=== PATIENT | female | born 1985 | race Caucasian/White ===

== ENCOUNTER 2016-12-31 22:29 | Emergency (ER) | payer MEDICAID, OTHER ==
[2016-12-31] MEDS ORDERED: KENALOG 0.1% CREAM 15 GM TP ONE (22:30)
[2016-12-31] MEDS ORDERED: KENALOG 0.1% LOTION TP ONE (22:38)
--- NOTE | 2016-12-31 22:54 | ERPHSYRPT ---
- History of Present Illness Time Seen by Provider: 12/31/16 22:49 Source: patient Exam Limitations: no limitations Patient Subjective Stated Complaint: pt states she has a rash to her scalp for a few weeks Triage Nursing Assessment: pt awake and alert. answers questions approp. pt fidgeting and moving constantly. pt ambulatory with steady gait noted. respirations nonlabored with lungs cta. raised red bumps and some pustules noted to scalp. large matted hair ball to top of head. Physician History: pt states she has a rash to her scalp for a few weeks raised red bumps and some pustules noted to scalp. large matted hair ball to top of head Timing/Duration: day(s) Quality: burning, itchy Severity: moderate Location: scalp Possible Causes: no cause identified Allergies/Adverse Reactions: labetalol [Labetalol] Allergy (Mild, Verified 01/05/15 18:27) Home Medications: Clonazepam 0.5 mg [Klonopin 0.5 MG] 0.5 mg PO DAILY 07/22/14 [History] Aripiprazole 10 mg [Abilify 10 MG] 10 mg PO DAILY 01/05/15 [History] Mcbee Carbonate [Mcbee Carbonate ER] 450 mg PO BID 01/05/15 [History] Hx Tetanus, Diphtheria Vaccination/Date Given: Yes Hx Influenza Vaccination/Date Given: No Hx Pneumococcal Vaccination/Date Given: No Immunizations Up to Date: Yes - Review of Systems Constitutional: No Symptoms Eyes: No Symptoms Ears, Nose, & Throat: No Symptoms Respiratory: No Symptoms Cardiac: No Symptoms Abdominal/Gastrointestinal: No Symptoms Genitourinary Symptoms: No Symptoms Skin: Rash, Skin Lesions (on scalp) - Past Medical History Pertinent Past Medical History: Yes Neurological History: No Pertinent History ENT History: No Pertinent History Cardiac History: Hypertension Respiratory History: No Pertinent History Endocrine Medical History: No Pertinent History Musculoskeletal History: No Pertinent History GI Medical History: No Pertinent History History: No Pertinent History Psycho-Social History: Anxiety, Bipolar, Depression Female Reproductive Disorders: Endometriosis, Other Other Medical History: PRE-ECLAMPSIA - Past Surgical History Past Surgical History: Yes Neuro Surgical History: No Pertinent History Cardiac: No Pertinent History Respiratory: No Pertinent History Gastrointestinal: No Pertinent History Genitourinary: No Pertinent History Musculoskeletal: No Pertinent History Female Surgical History: Section, Tubal Ligation - Social History Smoking Status: Current some day smoker Exposure to second hand smoke: Yes Drug Use: none Patient Lives Alone: No - Female History Hx Last Menstrual Period: last month Hx Now: No - Nursing Vital Signs Nursing Vital Signs: Initial Vital Signs Temperature 98.3 F 12/31/16 22:36 Pulse Rate 80 12/31/16 22:36 Respiratory Rate 18 12/31/16 22:36 Blood Pressure 162/94 12/31/16 22:36 O2 Sat by Pulse Oximetry 96 12/31/16 22:36 Pain Scale Pain Intensity 0 - Physical Exam General Appearance: no apparent distress Skin Exam: rash (on scalp area) Lymphatic Exam: adenopathy SpO2: 98 Oxygen Delivery: Room Air - Course Nursing assessment & vital signs reviewed: Yes Ordered Tests: Medication Summary Discontinued Medications Generic Name Dose Route Start Last Admin Trade Name Freq PRN Reason Stop Dose Admin Triamcinolone Acetonide 30 ml 12/31/16 22:38 Kenalog 0.1% Lotion TP 12/31/16 22:39 STAT ONE - Progress Progress: unchanged Counseled pt/family regarding: diagnosis, need for follow-up - Departure Time of Disposition: 22:51 Departure Disposition: Home Clinical Impression: Dermatitis Condition: Stable Critical Care Time: No Referrals: AIRAM ALBERTS [Primary Care Provider] - Instructions: Atopic Dermatitis - Adult Additional Instructions: RASH 1. Depending on the reason for the rash, the instructions will differ. 2. If an antibiotic has been prescribed, take it as directed until gone. 3. If anti-fungals or shampoos are prescribed, use only as directed and follow specific instructions on package container. 4. Avoid hot showers/baths, as this may increase itching. 5. Calamine lotion or Aveeno Oatmeal baths may help itching. 6. See your family physician if these signs or symptoms persist for more than four days. Prescriptions: Triamcinolone 0.1% Lotion [Kenalog 0.1% Lotion] 60 ml TP QID #60 lotion
[2016-12-31 23:10] VITALS: BP 127/70; PULSE 76; O2SAT 100
== END 2016-12-31 23:10 | disposition home or self-care (01) ==
LOC: ED 22:29
DX: L30.9 Dermatitis, unspecified (principal); I10 Essential (primary) hypertension
CPT/HCPCS: 99282; A9270-GY

== ENCOUNTER 2018-05-24 10:57 | Emergency (ER) | payer MEDICAID, OTHER ==
[2018-05-24 11:08] VITALS: O2SAT 99
--- NOTE | 2018-05-24 11:25 | ERPHSYRPT ---
- History of Present Illness Time Seen by Provider: 05/24/18 11:22 Source: patient Exam Limitations: no limitations Patient Subjective Stated Complaint: pt co sorethroat for a couple days , no fever no cough Triage Nursing Assessment: pt alert, walked in, resp easy, skin w/d/p. Physician History: The patient is a 33-year-old female with her 2 sons complaining of a sore throat for 2 days. She denies any fever. She was exposed to other family members recently who were diagnosed with strep throat. She is concerned only for the possibility that she has strep throat. She doesn't take any of her medicines that are prescribed. Timing/Duration: gradual onset, days (2) Severity: mild ENT Location: throat Prearrival Treatment: no prearrival treatment Modifying Factors: Improves With: nothing Associated Symptoms: sore throat Allergies/Adverse Reactions: labetalol [Labetalol] Allergy (Mild, Verified 05/24/18 11:08) Home Medications: No Reportable Medications [No Reported Medications] 05/24/18 [History] Hx Tetanus, Diphtheria Vaccination/Date Given: No Hx Influenza Vaccination/Date Given: No Hx Pneumococcal Vaccination/Date Given: No Immunizations Up to Date: Yes - Review of Systems Constitutional: No Fever, No Chills Eyes: No Symptoms Ears, Nose, & Throat: Throat Pain Respiratory: No Cough, No Dyspnea Cardiac: No Chest Pain, No Edema, No Syncope Abdominal/Gastrointestinal: No Abdominal Pain, No Nausea, No Vomiting, No Diarrhea Genitourinary Symptoms: No Dysuria Musculoskeletal: No Back Pain, No Neck Pain Skin: No Rash Neurological: No Dizziness, No Focal Weakness, No Sensory Changes Psychological: No Symptoms Endocrine: No Symptoms Hematologic/Lymphatic: No Symptoms Immunological/Allergic: No Symptoms All Other Systems: Reviewed and Negative - Past Medical History Pertinent Past Medical History: No Neurological History: No Pertinent History ENT History: No Pertinent History Cardiac History: Hypertension Respiratory History: No Pertinent History Endocrine Medical History: No Pertinent History Musculoskeletal History: No Pertinent History GI Medical History: No Pertinent History History: No Pertinent History Psycho-Social History: Anxiety, Bipolar, Depression Female Reproductive Disorders: Endometriosis, Other Other Medical History: PRE-ECLAMPSIA - Past Surgical History Past Surgical History: Yes Neuro Surgical History: No Pertinent History Cardiac: No Pertinent History Respiratory: No Pertinent History Gastrointestinal: No Pertinent History Genitourinary: No Pertinent History Musculoskeletal: No Pertinent History Female Surgical History: Section - Social History Smoking Status: Never smoker Exposure to second hand smoke: Yes Drug Use: none Patient Lives Alone: No - Female History Hx Last Menstrual Period: may 08 Hx Now: No - Nursing Vital Signs Nursing Vital Signs: Initial Vital Signs Temperature 97.9 F 05/24/18 11:00 Pulse Rate 88 05/24/18 11:00 Respiratory Rate 16 05/24/18 11:00 Blood Pressure 186/130 05/24/18 11:00 O2 Sat by Pulse Oximetry 98 05/24/18 11:00 Pain Scale Pain Intensity 6 - Physical Exam General Appearance: no apparent distress, alert Eye Exam: bilateral eye: normal inspection, PERRL Ear Exam: bilateral ear: auricle normal Nasal Exam: normal inspection Throat Exam: tonsillar exudate Neck Exam: supple Cardiovascular/Respiratory Exam: normal breath sounds, regular rate/rhythm Abdominal Exam: non-tender, soft Neurologic Exam: alert, oriented x 3, sensation nml, No motor deficits Skin Exam: normal color, warm, dry SpO2 Interpretation: normal SpO2: 99 Oxygen Delivery: Room Air Lab/Rad Data: Laboratory Results 05/24/18 Range/Units 11:34 Group A Strep Antibody NEGATIVE (NEGATIVE) - Progress Progress: unchanged Counseled pt/family regarding: lab results, diagnosis - Departure Time of Disposition: 12:26 Departure Disposition: Home Clinical Impression: Acute pharyngitis Condition: Stable Critical Care Time: No Referrals: DOCTOR,NO FAMILY [Primary Care Provider] - Additional Instructions: You have acute pharyngitis that is caused by a viral infection. The sensitive strep test that we performed was negative. Gargle with warm salt water as often as she like. Take Tylenol and ibuprofen as needed. Follow-up with your primary medical doctor as needed.
[2018-05-24 12:29] VITALS: BP 104/64; PULSE 112
== END 2018-05-24 12:33 | disposition home or self-care (01) ==
LOC: ED 10:57
DX: J02.9 Acute pharyngitis, unspecified (principal)
CPT/HCPCS: 87651; 99283

== ENCOUNTER 2018-06-22 18:34 | Emergency (ER) | payer MEDICAID, OTHER ==
[2018-06-22 19:35] LABS: BASOPHIL % 0.2 % (0.0-0.4); Basophil (Absolute #) 0.03 (0-0.4); Eosinophil % 1.3 % (0.00-5.0); Eosinophil (Absolute #) 0.18 (0-0.5); Granulocyte Absolute (ANC) 10.32 (1.4-6.9); Granulocytes % 76.2 % (36.0-66.0); Hematocrit 39.3 % (35-47); Hemoglobin 13.2 gm/dl (12.0-16.0); Lymphocyte (Absolute #) 2.33 (1.0-4.6); Lymphocytes % 17.2 % (24.0-44.0); Mean Cell Volume 87.3 fl (78-100); Mean Corpuscular Hemoglobin 29.3 pg (26-32); Mean Corpuscular Hgb Concent. 33.6 g/dl (32-36); Mean Platelet Volume 10.6 fl (6-9.5); Monocyte (Absolute #) 0.69 (0.0-1.3); Monocytes % 5.1 % (0.0-12.0); Platelet Count 301 K/mm3 (150-450); Red Cell Distribution Width 12.2 % (11.5-14.0); White Blood Count 13.6 K/mm3 (4.0-10.5)
[2018-06-22 19:50] LABS: ALBUMIN 4.3 g/dL (3.5-5.0); ALKALINE PHOSPHATASE 94 U/L (38-126); ANION GAP 12.6 MEQ/L (5-15); BLOOD UREA NITROGEN 12 mg/dL (7-17); CHLORIDE 102 mmol/L (98-107); Calcium 9.8 mg/dL (8.4-10.2); Carbon Dioxide 28 mmol/L (22-30); Creatinine 1 0.81 mg/dL (0.52-1.04); Glucose 116 mg/dL (74-106); Potassium 3.5 mmol/L (3.5-5.1); SGOT/AST 21 U/L (14-36); SGPT/ALT 17 U/L (0-35); SODIUM 139 mmol/L (137-145); Total Protein 7.6 g/dL (6.3-8.2)
[2018-06-22 20:05] VITALS: BP 158/109; PULSE 82; O2SAT 96
[2018-06-22 20:23] LABS: Group A Strep POSITIVE (NEGATIVE); INFLUENZA A NEGATIVE (NEGATIVE); INFLUENZA B NEGATIVE (NEGATIVE); RESPIRATORY SYNCTIAL VIRUS NEGATIVE (Negative)
[2018-06-22] MEDS ORDERED: AMOXIL 500 MG PO ONE (20:26)
[2018-06-22] MEDS ORDERED: AMOXIL 500 MG ONE (20:29)
--- NOTE | 2018-06-22 20:32 | ERPHSYRPT ---
- History of Present Illness Source: patient Exam Limitations: no limitations Patient Subjective Stated Complaint: Sore throat/Body aches Triage Nursing Assessment: Patient ambulated back to ED and transferred self to bed. Patient A+OX 3. Patient complains of sore throat and body aches 4/10 since earlier today and has gotten worse throughout the day. Patient denies fever. Patient's lungs noted to be clear a/p juni. O2 98% on room air. Skin pink, warm and dry. Throat noted to be slightly red. Physician History: Pt is a 33 y/o female that started having sore throat and muscle pains, and as she is new to the area, does not have a PCP, so she came to the ED. Pt states no F/C/S. No dysuria, frequency and urgency. No SOB or cough. No wheeze. No N/V/D or abdominal pain. Timing/Duration: abrupt onset Severity: mild ENT Location: throat Modifying Factors: Improves With: nothing Associated Symptoms: malaise, sore throat Allergies/Adverse Reactions: labetalol [Labetalol] Allergy (Mild, Verified 06/22/18 18:52) Hx Tetanus, Diphtheria Vaccination/Date Given: No Hx Influenza Vaccination/Date Given: No Hx Pneumococcal Vaccination/Date Given: No Immunizations Up to Date: Yes - Review of Systems Constitutional: Malaise Eyes: No Symptoms Ears, Nose, & Throat: Throat Pain, Painful Swallowing Respiratory: No Cough, No Dyspnea Cardiac: No Chest Pain, No Edema, No Syncope Abdominal/Gastrointestinal: No Abdominal Pain, No Nausea, No Vomiting, No Diarrhea Genitourinary Symptoms: No Dysuria Musculoskeletal: No Back Pain, No Neck Pain - Past Medical History Pertinent Past Medical History: No Neurological History: No Pertinent History ENT History: No Pertinent History Cardiac History: Hypertension Respiratory History: No Pertinent History Endocrine Medical History: No Pertinent History Musculoskeletal History: No Pertinent History GI Medical History: No Pertinent History History: No Pertinent History Psycho-Social History: Anxiety, Bipolar, Depression Female Reproductive Disorders: Endometriosis, Other Other Medical History: PRE-ECLAMPSIA - Past Surgical History Past Surgical History: Yes Neuro Surgical History: No Pertinent History Cardiac: No Pertinent History Respiratory: No Pertinent History Gastrointestinal: No Pertinent History Genitourinary: No Pertinent History Musculoskeletal: No Pertinent History Female Surgical History: Section - Social History Smoking Status: Never smoker Exposure to second hand smoke: No Drug Use: none Patient Lives Alone: No - Female History Hx Last Menstrual Period: Couple days ago Hx Now: No - Nursing Vital Signs Nursing Vital Signs: Initial Vital Signs Temperature 100.1 F 06/22/18 18:52 Pulse Rate 108 H 06/22/18 18:52 Respiratory Rate 18 06/22/18 18:52 Blood Pressure 192/130 06/22/18 18:52 O2 Sat by Pulse Oximetry 96 06/22/18 18:52 Pain Scale Pain Intensity 4 - Physical Exam General Appearance: no apparent distress, alert Nasal Exam: normal inspection Throat Exam: pharynx normal, moist mucus membranes (No exudates were seen) Neck Exam: supple Cardiovascular/Respiratory Exam: normal breath sounds, regular rate/rhythm Abdominal Exam: non-tender, soft Neurologic Exam: alert, oriented x 3, sensation nml, No motor deficits SpO2: 96 - Course Nursing assessment & vital signs reviewed: Yes Ordered Tests: Active Orders 24 hr Category Date Time Status CBC W DIFF Stat Lab 06/22/18 19:25 Completed CMP Stat Lab 06/22/18 19:25 Completed Lab/Rad Data: Laboratory Result Diagrams 06/22/18 19:25 06/22/18 19:25 Laboratory Results 06/22/18 06/22/18 06/22/18 Range/Units 19:25 19:25 19:25 WBC 13.6 H (4.0-10.5) K/mm3 RBC 4.50 (4.1-5.4) M/mm3 Hgb 13.2 (12.0-16.0) gm/dl Hct 39.3 (35-47) % MCV 87.3 (78-100) fl MCH 29.3 (26-32) pg MCHC 33.6 (32-36) g/dl RDW 12.2 (11.5-14.0) % Plt Count 301 (150-450) K/mm3 MPV 10.6 H (6-9.5) fl Gran % 76.2 H (36.0-66.0) % Eos # (Auto) 0.18 (0-0.5) Absolute Lymphs (auto) 2.33 (1.0-4.6) Absolute Monos (auto) 0.69 (0.0-1.3) Lymphocytes % 17.2 L (24.0-44.0) % Monocytes % 5.1 (0.0-12.0) % Eosinophils % 1.3 (0.00-5.0) % Basophils % 0.2 (0.0-0.4) % Absolute Granulocytes 10.32 H (1.4-6.9) Basophils # 0.03 (0-0.4) Sodium 139 (137-145) mmol/L Potassium 3.5 (3.5-5.1) mmol/L Chloride 102 (98-107) mmol/L Carbon Dioxide 28 (22-30) mmol/L Anion Gap 12.6 (5-15) MEQ/L BUN 12 (7-17) mg/dL Creatinine 0.81 (0.52-1.04) mg/dL Estimated GFR > 60.0 ML/MIN Glucose 116 H (74-106) mg/dL Calcium 9.8 (8.4-10.2) mg/dL Total Bilirubin 0.30 (0.2-1.3) mg/dL AST 21 (14-36) U/L ALT 17 (0-35) U/L Alkaline Phosphatase 94 (38-126) U/L Serum Total Protein 7.6 (6.3-8.2) g/dL Albumin 4.3 (3.5-5.0) g/dL Influenza Type A Ag NEGATIVE (NEGATIVE) Influenza Type B Ag NEGATIVE (NEGATIVE) RSV (PCR) NEGATIVE (Negative) Group A Strep Antibody POSITIVE (NEGATIVE) - Progress Progress: unchanged Progress Note: 06/22/18 20:30 Pt had labs taken. She has leukocytosis, and group A strep came back positive. Pt will get a dose of Amoxicillin in the hospital, and a prescription will be e-scribed to her pharmacy of choice. A list of PCPs that accepts new pts will be given to the pt. Will see patient in: office Counseled pt/family regarding: lab results, diagnosis, need for follow-up - Departure Time of Disposition: 20:32 Departure Disposition: Home Clinical Impression: Acute pharyngitis, Strep pharyngitis Condition: Stable Critical Care Time: No Referrals: AIRAM ALBERTS [Primary Care Provider] - Instructions: Strep Throat (DC) Additional Instructions: Take Amoxicillin as ordered. F/U with PCP. Forms: Providers Accepting New PT'S Prescriptions: Amoxicillin 875 mg PO BID 7 Days #14 tablet
== END 2018-06-22 20:42 | disposition home or self-care (01) ==
LOC: ED 18:34
DX: J02.0 Streptococcal pharyngitis (principal)
CPT/HCPCS: 36415; 80053; 85025; 87631; 87651; 99283; A9270-GY

== ENCOUNTER 2018-08-02 16:52 | Emergency (ER) | payer OTHER ==
[2018-08-02] MEDS ORDERED: Zofran 4 MG/2 ML VIAL IV ONE (17:40)
[2018-08-02] MEDS ORDERED: Sodium Chloride 0.9% 1000 ML 1,000 ML IV STA (17:40)
[2018-08-02] MEDS ORDERED: Zofran 4 MG/2 ML VIAL ONE (17:54)
[2018-08-02] MEDS ORDERED: Sodium Chloride 0.9% 1000 ML 1,000 ML ONE (17:55)
[2018-08-02 18:16] VITALS: O2SAT 98
[2018-08-02 18:41] LABS: BASOPHIL % 0.2 % (0.0-0.4); Basophil (Absolute #) 0.01 (0-0.4); Eosinophil (Absolute #) 0.17 (0-0.5); Granulocyte Absolute (ANC) 3.06 (1.4-6.9); Granulocytes % 53.6 % (36.0-66.0); Hemoglobin 13.4 gm/dl (12.0-16.0); Lymphocyte (Absolute #) 1.87 (1.0-4.6); Lymphocytes % 32.7 % (24.0-44.0); Mean Cell Volume 87.3 fl (78-100); Mean Corpuscular Hemoglobin 29.3 pg (26-32); Mean Corpuscular Hgb Concent. 33.5 g/dl (32-36); Mean Platelet Volume 10.4 fl (6-9.5); Monocytes % 10.5 % (0.0-12.0); Platelet Count 276 K/mm3 (150-450); Red Blood Count 4.58 M/mm3 (4.1-5.4); Red Cell Distribution Width 12.9 % (11.5-14.0); White Blood Count 5.7 K/mm3 (4.0-10.5)
[2018-08-02] MEDS ORDERED: TYLENOL EXTRA STRENGTH 500 MG PO STA (18:50)
[2018-08-02] MEDS ORDERED: TYLENOL EXTRA STRENGTH 500 MG ONE (18:51)
[2018-08-02 19:04] LABS: ALBUMIN 4.1 g/dL (3.5-5.0); ALKALINE PHOSPHATASE 89 U/L (38-126); ANION GAP 13.6 MEQ/L (5-15); BLOOD UREA NITROGEN 16 mg/dL (7-17); CHLORIDE 108 mmol/L (98-107); Calcium 9.1 mg/dL (8.4-10.2); Carbon Dioxide 21 mmol/L (22-30); Creatinine 1 0.78 mg/dL (0.52-1.04); Glucose 104 mg/dL (74-106); LIPASE 68 U/L (23-300); Potassium 3.4 mmol/L (3.5-5.1); SGOT/AST 23 U/L (14-36); SGPT/ALT 19 U/L (0-35); SODIUM 139 mmol/L (137-145); Total Protein 7.3 g/dL (6.3-8.2)
[2018-08-02 19:12] LABS: 027 TOX PROD PRESUMPTIVE NEGATIVE (NEGATIVE); TOXIGENIC C. DIFF ORG NEGATIVE (NEGATIVE)
[2018-08-02 19:29] LABS: Appearance SLIGHTLY CLOUDY (CLEAR); Bacteria MODERATE /HPF (NEGATIVE); Bilirubin NEGATIVE (NEGATIVE); Blood NEGATIVE Ery/ul (0-5); Epithelial Cells RARE /HPF (FEW); Glucose NEGATIVE (NEGATIVE); Ketones NEGATIVE (NEGATIVE); Leukocyte Esterase SMALL (NEGATIVE); Mucus SLIGHT /HPF (NEGATIVE); Nitrite NEGATIVE (NEGATIVE); Protein,Urine Dip 30 (Negative); Specific Gravity 1.024 (1.005-1.025); Urobilinogen NEGATIVE mg/dL (0-1); WBC 26-50 /HPF (0-5)
[2018-08-02] MEDS ORDERED: ROCEPHIN 1 Gm-D5w 50 ml Bag** 1 G/50 ML IVPB IV STA (19:51)
[2018-08-02] MEDS ORDERED: Klor Con 10 MEQ PO ONE ×2 (19:51→19:54)
[2018-08-02] MEDS ORDERED: ROCEPHIN 1 Gm-D5w 50 ml Bag** 1 G/50 ML IVPB IV ONE (19:54)
--- NOTE | 2018-08-02 20:57 | ERPHSYRPT ---
- History of Present Illness Historian: patient Exam Limitations: no limitations Patient Subjective Stated Complaint: pt here for aches, nausea, fever off,loose stools off and on since tuesday, she is able to eat and drink and had a corn dog for lunch today, low grade fever last at 0400. Triage Nursing Assessment: pt alert, resp easy, skin w/d/p, abd soft, no edema Physician History: Pt presented to the ED with complains of severe N/V/D. Pt states, she had multiple episodes of diarrhea, and vomiting, and could not hold any fluids or food down. Pt states, had sweats, and body aches. Pt denies SOB or cough. No chest pain or palpitations. No dysuria, frequency and urgency. Timing/Duration: day(s) Activities at Onset: none Quality: cramping Abdominal Pain Onset Location: generalized abdomen Pain Radiation: no radiation Severity of Pain-Max: moderate Severity of Pain-Current: moderate Modifying Factors: Improves With: defecating, movement, palpation, vomiting Associated Symptoms: diarrhea, nausea, vomiting Allergies/Adverse Reactions: labetalol [Labetalol] Allergy (Mild, Verified 08/02/18 17:16) Hx Tetanus, Diphtheria Vaccination/Date Given: No Hx Influenza Vaccination/Date Given: No Hx Pneumococcal Vaccination/Date Given: No Immunizations Up to Date: Yes - Review of Systems Constitutional: Chills, Lethargy, Weakness Eyes: No Symptoms Ears, Nose, & Throat: No Symptoms Respiratory: No Cough, No Dyspnea Cardiac: No Chest Pain, No Edema, No Syncope Abdominal/Gastrointestinal: Abdominal Pain, Nausea, Vomiting, Diarrhea Genitourinary Symptoms: No Dysuria Musculoskeletal: No Back Pain, No Neck Pain Neurological: No Dizziness, No Focal Weakness, No Sensory Changes - Past Medical History Pertinent Past Medical History: No Neurological History: No Pertinent History ENT History: No Pertinent History Cardiac History: Hypertension Respiratory History: No Pertinent History Endocrine Medical History: No Pertinent History Musculoskeletal History: No Pertinent History GI Medical History: No Pertinent History History: No Pertinent History Psycho-Social History: Anxiety, Bipolar, Depression Female Reproductive Disorders: Endometriosis, Other Other Medical History: PRE-ECLAMPSIA - Past Surgical History Past Surgical History: Yes Neuro Surgical History: No Pertinent History Cardiac: No Pertinent History Respiratory: No Pertinent History Gastrointestinal: No Pertinent History Genitourinary: No Pertinent History Musculoskeletal: No Pertinent History Female Surgical History: Section - Social History Smoking Status: Never smoker Exposure to second hand smoke: No Drug Use: none Patient Lives Alone: No - Female History Hx Last Menstrual Period: may 2018 Hx Now: No - Nursing Vital Signs Nursing Vital Signs: Initial Vital Signs Temperature 97.8 F 08/02/18 17:09 Pulse Rate 85 08/02/18 17:09 Respiratory Rate 18 08/02/18 17:09 Blood Pressure 161/106 08/02/18 17:09 O2 Sat by Pulse Oximetry 97 08/02/18 17:09 Pain Scale Pain Intensity 7 - Physical Exam General Appearance: mild distress Eye Exam: PERRL/EOMI, eyes nml inspection Ears, Nose, Throat Exam: normal ENT inspection, pharynx normal, moist mucous membranes Neck Exam: normal inspection, non-tender, supple, full range of motion Respiratory Exam: normal breath sounds Cardiovascular Exam: regular rate/rhythm, normal heart sounds Gastrointestinal/Abdomen Exam: soft, normal bowel sounds, tenderness Pelvic Exam: not done Rectal Exam: deferred Extremity Exam: normal inspection, normal range of motion, pelvis stable Neurologic Exam: alert, oriented x 3, cooperative, normal mood/affect, nml cerebellar function, sensation nml, No motor deficits SpO2: 98 - Course Nursing assessment & vital signs reviewed: Yes Ordered Tests: Active Orders 24 hr Category Date Time Status CBC W DIFF Stat Lab 08/02/18 17:40 Completed CMP Stat Lab 08/02/18 18:30 Completed CULTURE,URINE Stat Lab 08/02/18 18:57 Received LIPASE Stat Lab 08/02/18 18:30 Completed Occult Blood, Other Screening Stat Lab 08/02/18 18:18 Completed UA W/RFX UR CULTURE Stat Lab 08/02/18 18:57 Completed Medication Summary Discontinued Medications Generic Name Dose Route Start Last Admin Trade Name Freq PRN Reason Stop Dose Admin Acetaminophen 1,000 mg 08/02/18 18:50 08/02/18 18:51 Tylenol Extra Strength 500 Mg PO 08/02/18 18:51 1,000 mg STAT STA Administration Acetaminophen Confirm 08/02/18 18:51 Tylenol Extra Strength 500 Mg Administered 08/02/18 18:52 Dose 1,000 mg .ROUTE .STK-MED ONE Sodium Chloride 1,000 mls @ 999 mls/hr 08/02/18 17:40 08/02/18 19:50 Sodium Chloride 0.9% 1000 Ml IV 08/02/18 18:40 Infused .Q1H1M STA Infusion Sodium Chloride Confirm 08/02/18 17:55 Sodium Chloride 0.9% 1000 Ml Administered 08/02/18 17:56 Dose 1,000 mls @ ud .ROUTE .STK-MED ONE Ceftriaxone Sodium/Dextrose 1 g in 50 mls @ 100 mls/hr 08/02/18 19:51 19:59 Rocephin 1 Gm-D5w 50 Ml Bag IV 08/02/18 20:20 100 mls/hr STAT STA Administration Ceftriaxone Sodium/Dextrose Confirm 08/02/18 19:54 Rocephin 1 Gm-D5w 50 Ml Bag Administered 08/02/18 19:55 Dose 1 g in 50 mls @ ud IV .STK-MED ONE Ondansetron HCl 4 mg 08/02/18 17:40 08/02/18 17:55 Zofran 4 Mg/2 Ml Vial IV 08/02/18 17:41 4 mg STAT ONE Administration Ondansetron HCl Confirm 08/02/18 17:54 Zofran 4 Mg/2 Ml Vial Administered 08/02/18 17:55 Dose 4 mg .ROUTE .STK-MED ONE Potassium Chloride 40 meq 08/02/18 19:51 08/02/18 20:00 Klor Con 10 Meq PO 08/02/18 19:52 40 meq STAT ONE Administration Potassium Chloride Confirm 08/02/18 19:54 Klor Con 10 Meq Administered 08/02/18 19:55 Dose 40 meq PO .STK-MED ONE Lab/Rad Data: Laboratory Result Diagrams 08/02/18 17:40 08/02/18 18:30 Laboratory Results 08/02/18 08/02/18 08/02/18 Range/Units 18:57 18:30 18:18 WBC (4.0-10.5) K/mm3 RBC (4.1-5.4) M/mm3 Hgb (12.0-16.0) gm/dl Hct (35-47) % MCV (78-100) fl MCH (26-32) pg MCHC (32-36) g/dl RDW (11.5-14.0) % Plt Count (150-450) K/mm3 MPV (6-9.5) fl Gran % (36.0-66.0) % Eos # (Auto) (0-0.5) Absolute Lymphs (auto) (1.0-4.6) Absolute Monos (auto) (0.0-1.3) Lymphocytes % (24.0-44.0) % Monocytes % (0.0-12.0) % Eosinophils % (0.00-5.0) % Basophils % (0.0-0.4) % Absolute Granulocytes (1.4-6.9) Basophils # (0-0.4) Sodium 139 (137-145) mmol/L Potassium 3.4 L (3.5-5.1) mmol/L Chloride 108 H (98-107) mmol/L Carbon Dioxide 21 L (22-30) mmol/L Anion Gap 13.6 (5-15) MEQ/L BUN 16 (7-17) mg/dL Creatinine 0.78 (0.52-1.04) mg/dL Estimated GFR > 60.0 ML/MIN Glucose 104 (74-106) mg/dL Calcium 9.1 (8.4-10.2) mg/dL Total Bilirubin 0.30 (0.2-1.3) mg/dL AST 23 (14-36) U/L ALT 19 (0-35) U/L Alkaline Phosphatase 89 (38-126) U/L Serum Total Protein 7.3 (6.3-8.2) g/dL Albumin 4.1 (3.5-5.0) g/dL Lipase 68 (23-300) U/L Urine Color YELLOW (YELLOW) Urine Appearance SLIGHTLY CLOUDY (CLEAR) Urine pH 5.0 (5-6) Ur Specific [place] 1.024 (1.005-1.025) Urine Protein 30 (Negative) Urine Ketones NEGATIVE (NEGATIVE) Urine Blood NEGATIVE (0-5) Enrique/ul Urine Nitrite NEGATIVE (NEGATIVE) Urine Bilirubin NEGATIVE (NEGATIVE) Urine Urobilinogen NEGATIVE (0-1) mg/dL Ur Leukocyte Esterase SMALL (NEGATIVE) Urine WBC (Auto) 26-50 (0-5) /HPF Urine RBC (Auto) 3-5 (0-2) /HPF U Epithel Cells (Auto) RARE (FEW) /HPF Urine Bacteria (Auto) MODERATE (NEGATIVE) /HPF Urine Mucus (Auto) SLIGHT (NEGATIVE) /HPF Urine Culture Reflexed YES (NO) Urine Glucose NEGATIVE (NEGATIVE) mg/dL Stool Occult Blood NEGATIVE (Negative) Stl C. diff Tox B Gene (NEGATIVE) C.difficile 027-[id number] (NEGATIVE) 08/02/18 08/02/18 Range/Units 18:18 17:40 WBC 5.7 (4.0-10.5) K/mm3 RBC 4.58 (4.1-5.4) M/mm3 Hgb 13.4 (12.0-16.0) gm/dl Hct 40.0 (35-47) % MCV 87.3 (78-100) fl MCH 29.3 (26-32) pg MCHC 33.5 (32-36) g/dl RDW 12.9 (11.5-14.0) % Plt Count 276 (150-450) K/mm3 MPV 10.4 H (6-9.5) fl Gran % 53.6 (36.0-66.0) % Eos # (Auto) 0.17 (0-0.5) Absolute Lymphs (auto) 1.87 (1.0-4.6) Absolute Monos (auto) 0.60 (0.0-1.3) Lymphocytes % 32.7 (24.0-44.0) % Monocytes % 10.5 (0.0-12.0) % Eosinophils % 3.0 (0.00-5.0) % Basophils % 0.2 (0.0-0.4) % Absolute Granulocytes 3.06 (1.4-6.9) Basophils # 0.01 (0-0.4) Sodium (137-145) mmol/L Potassium (3.5-5.1) mmol/L Chloride (98-107) mmol/L Carbon Dioxide (22-30) mmol/L Anion Gap (5-15) MEQ/L BUN (7-17) mg/dL Creatinine (0.52-1.04) mg/dL Estimated GFR ML/MIN Glucose (74-106) mg/dL Calcium (8.4-10.2) mg/dL Total Bilirubin (0.2-1.3) mg/dL AST (14-36) U/L ALT (0-35) U/L Alkaline Phosphatase (38-126) U/L Serum Total Protein (6.3-8.2) g/dL Albumin (3.5-5.0) g/dL Lipase (23-300) U/L Urine Color (YELLOW) Urine Appearance (CLEAR) Urine pH (5-6) Ur Specific [place] (1.005-1.025) Urine Protein (Negative) Urine Ketones (NEGATIVE) Urine Blood (0-5) Enrique/ul Urine Nitrite (NEGATIVE) Urine Bilirubin (NEGATIVE) Urine Urobilinogen (0-1) mg/dL Ur Leukocyte Esterase (NEGATIVE) Urine WBC (Auto) (0-5) /HPF Urine RBC (Auto) (0-2) /HPF U Epithel Cells (Auto) (FEW) /HPF Urine Bacteria (Auto) (NEGATIVE) /HPF Urine Mucus (Auto) (NEGATIVE) /HPF Urine Culture Reflexed (NO) Urine Glucose (NEGATIVE) mg/dL Stool Occult Blood (Negative) Stl C. diff Tox B Gene NEGATIVE (NEGATIVE) C.difficile 027-[id number] PRESUMPTIVE NEGATIVE (NEGATIVE) - Progress Progress: improved Progress Note: 08/02/18 20:57 Pt had stool checked for C diff, O&P, and culture. She has no leukocytosis, and her potassium is slightly low. Pt does have UTI on UA. She got IVF, Rocephin IV and KCl 40meq PO. Pt is feeling much better and is cleared to D/C. C diff is negative. Will see patient in: office Counseled pt/family regarding: lab results, diagnosis, need for follow-up - Departure Time of Disposition: 20:59 Departure Disposition: Home Clinical Impression: UTI (urinary tract infection) Condition: Stable Critical Care Time: No Referrals: AIRAM ALBERTS [Primary Care Provider] - Additional Instructions: F/U with PCP. Take Omnicef as ordered. Avoid heavy foods and fatty diet at this point. Keep yourself well hydrated. Prescriptions: Cefdinir [Omnicef] 300 mg PO BID #10 capsule
[2018-08-02 21:10] VITALS: BP 156/98; PULSE 78
[2018-08-04 12:15] LABS: Source: Feces
[2018-08-04 12:32] LABS: Giardia Antigen EIA Negative (Negative)
== END 2018-08-02 21:09 | disposition home or self-care (01) ==
LOC: ED 16:52
DX: N39.0 Urinary tract infection, site not specified (principal); I10 Essential (primary) hypertension; F41.9 Anxiety disorder, unspecified; F31.9 Bipolar disorder, unspecified
CPT/HCPCS: 36000; 36415; 80053; 81001; 82272; 83690; 85025; 87045; 87046; 87077; 87086; 87177; 87186; 87209; 87335; 87493; 96360; 96374; 99284; J0696; J2405; A9270-GY